=== PATIENT | female | born 2005 | race Caucasian/White ===

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

== ENCOUNTER 2024-05-23 10:05 | Observation (INO) | payer OTHER ==
[~2024-05-23] VITALS: Ht 170.2 cm; Wt 59.0 kg
[2024-05-23] MEDS ORDERED: Ondansetron HCl 2 MG / ML 2ML Vial IV ONE ×2 (10:20→11:45)
[2024-05-23 11:00] LABS: BASOPHILS ABSOLUTE AUTO 0.07 K/mm3 (0.00-0.23); BASOPHILS PERCENT AUTO 1 % (0-2); EOSINOPHILS ABSOLUTE AUTO 0.01 K/mm3 (0.00-0.68); EOSINOPHILS PERCENT AUTO 0 % (0-6); Hematocrit 25.8 % (33.0-51.0); Hemoglobin 8.6 g/dL (11.5-16.0); IMMATURE GRAN ABSOLUTE AUTO 0.06 K/mm3 (0.00-0.10); IMMATURE GRAN PERCENT AUTO 1 % (0-1); LYMPHOCYTES ABSOLUTE AUTO 0.84 K/mm3 (0.84-5.20); LYMPHOCYTES PERCENT AUTO 7 % (21-46); MONOCYTES ABSOLUTE AUTO 0.67 K/mm3 (0.16-1.47); MONOCYTES PERCENT AUTO 6 % (4-13); Mean Corpuscular HGB 30.3 pg (26.0-34.0); Mean Corpuscular HGB Conc 33.3 g/dL (31.5-36.5); Mean Corpuscular Volume 91 fL (80-100); Mean Platelet Volume 9.8 fL (9.1-12.4); NEUTROPHILS ABSOLUTE AUTO 9.85 K/mm3 (1.96-9.15); NEUTROPHILS PERCENT AUTO 86 % (41-73); Platelet Count 260 K/mm3 (150-400); RDW Coefficient Variation 11.8 % (11.7-14.2); RDW Standard Deviation 39.3 fL (35.1-46.3); Red Blood Cell Count 2.84 M/mm3 (3.80-5.20)
[2024-05-23 11:05] LABS: IMMATURE RETIC FRACTION 15.1 % (2.3-16.0); RETIC HGB EQUIVALENT 29.1 pg (28.20-36.60); RETICULOCYTE ABSOLUTE 0.0426 M/mm3 (0.0200-0.1100); RETICULOCYTE COUNT PERCENT 1.51 % (0.50-2.50)
[2024-05-23] MEDS ORDERED: Diphth,Pertuss(Acell),Tet Vac 0.5 ML VIAL IM ONE (11:10)
[2024-05-23 11:14] LABS: Albumin, Blood 4.1 g/dL (3.4-5.0); Albumin/Globulin Ratio 1.5 (0.8-1.8); Bilirubin, Total 1.2 mg/dL (0.1-1.0); Bun/Creatinine Ratio 9.7 (12.0-20.0); Calcium, Blood 8.4 mg/dL (8.5-10.1); Creatinine, Blood 0.73 mg/dL (0.40-1.00); Globulin, Blood 2.7 g/dL (2.2-4.0); Potassium, Blood 3.3 mmol/L (3.5-5.5); Total Protein, Blood 6.8 g/dL (6.4-8.2)
[2024-05-23] MEDS ORDERED: Potassium Chloride 10 Meq Tablet SA PO ONE (11:25)
[2024-05-23] MEDS ORDERED: NS 1,000 ML IV SCH (11:45)
[2024-05-23] MEDS ORDERED: Acetaminophen 325 MG TABLET PO PRN (15:30)
[2024-05-23] MEDS ORDERED: Zolpidem Tartrate 5 MG Tab PO PRN (15:30)
[2024-05-23] MEDS ORDERED: Metoclopramide HCl 5MG / ML 2ML Vial IV PRN (15:35)
[2024-05-23] MEDS ORDERED: FLU VACC TS2024-25(6MOS UP)/PF 45 MCG/0.5 ML SYRINGE IM SCH (15:35)
[2024-05-23] MEDS ORDERED: Prochlorperazine Edisylate 10 mg Vial IV PRN (15:35)
[2024-05-23] MEDS ORDERED: Ondansetron 4 MG TAB PO PRN (15:35)
[2024-05-23] MEDS ORDERED: Ondansetron HCl 2 MG / ML 2ML Vial IV PRN (15:35)
[2024-05-23] MEDS ORDERED: Magnesium Hydroxide Conc 10 ML UDC PO PRN (15:35)
[2024-05-23] MEDS ORDERED: Lactated Ringer's 1,000 ML IV SCH (15:35)
[2024-05-23] MEDS ORDERED: Rho(D) Immune Globulin 300 MCG / SYR IV ONE (16:00)
[2024-05-23] MEDS ORDERED: Sod Ferric Gluc Complx/Sucrose 125 MG in NS 100 ML IV SCH (18:00)
[2024-05-23 19:31] VITALS: BP 106/65
--- NOTE | 2024-05-23 19:31 | NUR ---
ARRIVAL PT NEW ADMIT FROM ER. [facility] [employer]. PT A/OX4, REPORTS 10/06 HEADACHE PAIN R/T STITCHES AND SYNCOPAL EPISODE. X2 STITCHES NOTED ON L EYEBROW. NO BRUISING NOTED. PT REPORTS NO VISION CHANGES, NO DIZZINESS, LIGHTHEADEDNESS, OR CONFUSION. PT MEDICATED WITH TYLENOL FOR HER HEADACHE. PT ENDORSES MODERATE VAGINAL BLEEDING, NEEDING A PAD CHANGE "ABOUT EVERY 3 OR 4 HOURS". PT REPORTS NO ABD PAIN. FATHER REMAINS AT BEDSIDE, LOVING AND ATTENTIVE.
[2024-05-23] MEDS ORDERED: Ketorolac Tromethamine 30mg Vial IV PRN (20:25)
[2024-05-23] MEDS ORDERED: OxyCODONE HCL 5 MG TAB PO PRN (20:35)
[2024-05-24] VITALS (15 sets, daily range): BP systolic 97–125; BP diastolic 49–94
--- NOTE | 2024-05-24 04:49 | NUR ---
SHIFT SUMMARY VSS. PT SLEPT WEL T/O THE NIGHT. PT REQUIRED PAIN MEDICATION FOR HER HEADACHE, RELATED TO HER EYEBROW STITCHES. PT MEDICATED WITH TYLENOL AND TORADOL WITH GOOD RESULTS. THIS AM HER L EYEBROW APPEARS SWOLLEN AND PINK. NO VISION CHANGES NOTED. VAGINAL BLEEDING HAS BEEN LIGHT T/O THE NIGHT. PT UTILIZED TWO PADS, HARDLY ANY EXUDATE NOTED ON BOTH. PT DESCRIBES HER BLEEDING LIGHT TO MODERATE COMPARED TO HER MENSTRUAL FLOW. PT HAS BEEN STRICT NPO SINCE [address] SIBLEY ORDERS. IVF INFUSING PER EMAR. OVERALL, NO ACUTE EVENTS NOTED. PLAN FOR POSSIBLE D&C TODAY.
[2024-05-24 05:33] LABS: BASOPHILS ABSOLUTE AUTO 0.02 K/mm3 (0.00-0.23); BASOPHILS PERCENT AUTO 0 % (0-2); EOSINOPHILS ABSOLUTE AUTO 0.09 K/mm3 (0.00-0.68); EOSINOPHILS PERCENT AUTO 2 % (0-6); Hematocrit 18.4 % (33.0-51.0); IMMATURE GRAN ABSOLUTE AUTO 0.01 K/mm3 (0.00-0.10); IMMATURE GRAN PERCENT AUTO 0 % (0-1); LYMPHOCYTES ABSOLUTE AUTO 1.96 K/mm3 (0.84-5.20); LYMPHOCYTES PERCENT AUTO 40 % (21-46); MONOCYTES ABSOLUTE AUTO 0.45 K/mm3 (0.16-1.47); MONOCYTES PERCENT AUTO 9 % (4-13); Mean Corpuscular HGB 30.6 pg (26.0-34.0); Mean Corpuscular HGB Conc 32.6 g/dL (31.5-36.5); Mean Corpuscular Volume 94 fL (80-100); Mean Platelet Volume 9.8 fL (9.1-12.4); NEUTROPHILS ABSOLUTE AUTO 2.36 K/mm3 (1.96-9.15); NEUTROPHILS PERCENT AUTO 48 % (41-73); Platelet Count 164 K/mm3 (150-400); RDW Standard Deviation 41.5 fL (35.1-46.3); Red Blood Cell Count 1.96 M/mm3 (3.80-5.20); White Blood Cell Count 4.89 K/mm3 (4.00-11.30)
[2024-05-24] MEDS ORDERED: CeFAZolin Sodium 2,000 MG in NS 100 ML IV SCH (06:35)
[2024-05-24] MEDS ORDERED: Lactated Ringer's 1,000 ML IV SCH (06:35)
[2024-05-24] MEDS ORDERED: propofoL 20 ML IV ONE (06:49)
[2024-05-24] MEDS ORDERED: FentaNYL Citrate 50 MCG/ML 2 ML Injection ONE (06:49)
[2024-05-24] MEDS ORDERED: Methylergonovine Maleate 0.2MG / ML 1ML Amp ONE (07:07)
[2024-05-24] MEDS ORDERED: Doxycycline Hyclate 200 MG in Dextrose 5% 500 ML IV SCH (07:45)
[2024-05-24] MEDS ORDERED: Ondansetron HCl 2 MG / ML 2ML Vial ONE (08:07)
[2024-05-24] MEDS ORDERED: Carboprost Tromethamine 250 MCG/ML 1ML Amp ONE (08:07)
[2024-05-24] MEDS ORDERED: Dexamethasone Sod Phos 10 MG/ML 1ML VIAL ONE (08:07)
[2024-05-24] MEDS ORDERED: Tranexamic Acid 100 ML IV ONE (08:10)
--- NOTE | 2024-05-24 08:26 | NUR ---
History, Chart, Medications and Allergies reviewed before start of procedure. Patient up to Ambulate independently. Gait steady. Pre-Op teaching done. Pt verbalizes understanding. Patient confirms NPO status and agrees with scheduled surgery. Lungs clear T/O to Auscultation.
[2024-05-24] MEDS ORDERED: Ketorolac Tromethamine 30mg Vial ONE (08:50)
[2024-05-24] MEDS ORDERED: Misoprostol 200 MCG Tab ONE (08:51)
[2024-05-24] MEDS ORDERED: Sod Ferric Gluc Complx/Sucrose 125 MG in NS 100 ML IV SCH (09:00)
--- NOTE | 2024-05-24 09:23 | NUR ---
05/24/24 0923 LEYDA GOTTI CHARTING ERROR. RIGHT AC IV REMAINS, RIGHT FOREARM IV WAS REMOVED.
[2024-05-24 12:30] LABS: BASOPHILS ABSOLUTE AUTO 0.02 K/mm3 (0.00-0.23); BASOPHILS PERCENT AUTO 0 % (0-2); EOSINOPHILS ABSOLUTE AUTO 0.01 K/mm3 (0.00-0.68); EOSINOPHILS PERCENT AUTO 0 % (0-6); Hemoglobin 7.7 g/dL (11.5-16.0); IMMATURE GRAN ABSOLUTE AUTO 0.02 K/mm3 (0.00-0.10); IMMATURE GRAN PERCENT AUTO 0 % (0-1); LYMPHOCYTES ABSOLUTE AUTO 0.48 K/mm3 (0.84-5.20); LYMPHOCYTES PERCENT AUTO 9 % (21-46); MONOCYTES ABSOLUTE AUTO 0.12 K/mm3 (0.16-1.47); MONOCYTES PERCENT AUTO 2 % (4-13); Mean Corpuscular HGB 29.8 pg (26.0-34.0); Mean Corpuscular HGB Conc 32.1 g/dL (31.5-36.5); Mean Corpuscular Volume 93 fL (80-100); Mean Platelet Volume 9.5 fL (9.1-12.4); NEUTROPHILS ABSOLUTE AUTO 4.43 K/mm3 (1.96-9.15); NEUTROPHILS PERCENT AUTO 87 % (41-73); Platelet Count 159 K/mm3 (150-400); RDW Coefficient Variation 12.7 % (11.7-14.2); Red Blood Cell Count 2.58 M/mm3 (3.80-5.20); White Blood Cell Count 5.08 K/mm3 (4.00-11.30)
--- NOTE | 2024-05-24 15:02 | NUR ---
PT DISCHARGED AT 1355 WITH MOTHER TO TRANSPORT HOME.PT DENIED NEED FOR ANY PAIN MEDICATION AND WAS DOING WELL AFTER PROCEDURE BY DR BURNS. PT ONLY REPORTED SCANT SPOTTING AFTER ARRIVING BACK TO ROOM. PT AOX4 AND EATING AND DRINKING WELL. PAPERWORK WAS REVIEWED AND EDUCATIONAL MATERIAL WAS SENT WITH PT. NO DISTRESS NOTED.
== END 2024-05-24 13:58 | disposition home or self-care (01) ==
LOC: ER 10:05 → SURS 10:06 → ERHOLD 10:06 → SURS 18:57
PROVIDERS: Emergency Medicine; Obstetrics & Gynecology; ADMIT Obstetrics & Gynecology
PROC: 10D17ZZ Extraction of Products of Conception, Retained, Via Natural or Artificial Opening (ICD-10-PCS; principal; 2024-05-24 07:30)
DX: O07.4 Failed attempted termination of pregnancy without complication (principal); D62 Acute posthemorrhagic anemia; S01.81XA Laceration without foreign body of other part of head, initial encounter; W19.XXXA Unspecified fall, initial encounter
CPT/HCPCS: 36415; 36430; 74174; 76801; 76817; 76830; 76998; 80053; 82728; 84702; 84703; 85025; 85045; 86850; 86900; 86901; 86920; 86923; 88305; 90471; 90715; 93005; 93010; 96361; 96365; 96374; 96375; 96376; 99285-25; A9270; G0378; J0690; J1100; J1720; J1885; J2210; J2405; J2704; J2791; J2916; J3010; J7030; J7060; J7120; P9016; Q9967